=== PATIENT | female | born 1980 | race Asian ===

== ENCOUNTER 2016-10-16 15:41 | Emergency (ER) | payer MEDICAID ==
[~2016-10-16] VITALS: Ht 167.6 cm; Wt 63.5 kg
[2016-10-16] MEDS ORDERED: LORazepam Inj 2mg/ml 1ml IM ONE (16:00)
[2016-10-16] MEDS ORDERED: ATIVAN0.5 MG ORAL (17:55)
[2016-10-16 18:03] VITALS: BP 112/75
--- NOTE | 2016-10-16 18:55 | Emergency Room Report ---
History of Present Illness General Chief Complaint: General Complaint Source: Patient, EMS Present Illness HPI 36-year-old female presents to ED for evaluation. Per EMS patient is having a panic attack. Started today. Patient arrives crying, tremulous. Patient states she's having family problems. Has history of anxiety. Takes trazodone. Patient denies hitting depressed. Denies any suicidal or homicidal ideation. Denies hearing voices. Denies alcohol or drug use. No other aggravating or relieving factors. Denies any other associated symptoms Allergies: Coded Allergies: No Known Allergies (Unverified , 10/16/16) Patient History Past Medical History: psych hx Past Surgical History: none Pertinent Family History: none Social History: Denies: alcohol use, drug use, smoking Now: No Reviewed Nursing Documentation: PMH: Agreed, PSxH: Agreed Nursing Documentation-PMH Past Medical History: No History, Except For History Of Psychiatric Problem: Yes - ANXIETY Review of Systems All Other Systems: negative except mentioned in HPI Physical Exam Vital Signs Date Time Temp Pulse Resp B/P Pulse Ox O2 Delivery O2 Flow Rate FiO2 10/16/16 15:36 118 36 134/84 100 Room Air 10/16/16 18:03 97.7 Sp02 EP Interpretation: reviewed, normal General Appearance: alert, GCS 15, non-toxic, mild distress Head: normocephalic Eyes: bilateral eye PERRL, bilateral eye normal inspection ENT: normal ENT inspection Neck: normal inspection Respiratory: normal inspection Cardiovascular #1: normal inspection Gastrointestinal: normal inspection Rectal: deferred Genitourinary: no CVA tenderness Musculoskeletal: normal inspection Neurologic: alert, oriented x3, responsive, motor strength/tone normal, sensory intact, speech normal Psychiatric: judgement/insight normal, memory normal, no suicidal/homicidal ideation, no delusions, anxious Skin: normal inspection Lymphatic: normal inspection Medical Decision Making Diagnostic Impression: Primary Impression: Anxiety ER Course Hospital Course 36-year-old female presents ED crying, tremulous. History of anxiety. States she is having a panic attack Differential diagnoses include: anxiety, psychosis, ETOH Clinical course Patient placed on stretcher. on lunchroom monitor. After initial history and physical I ordered ativan IM Upon reassessment patient is observed feeling better. Interacting appropriately. Patient states she feels better wishes to go home. Clinical findings consistent with anxiety reaction. I. I feel this is a highly complex case requiring extensive working including EKG/Rhythm strip, Xray/CT/US, Blood/urine lab work, repeat exams while in ED, and administration of strong opiates/narcotics for pain control, admission to hospital or close patient follow up. Diagnosis - anxiety Stable and discharged to home with prescription for Ativan. Followup with PMD. Return to ED if symptoms recur or worse Last Vital Signs Date Time Temp Pulse Resp B/P Pulse Ox O2 Delivery O2 Flow Rate FiO2 10/16/16 18:03 88 16 112/75 100 Room Air 10/16/16 18:03 97.7 Status: improved Disposition: HOME, SELF-CARE Condition: Stable Scripts Lorazepam* (ATIVAN*) 0.5 Mg Tablet 0.5 MG ORAL THREE TIMES A DAY, #20 TAB Prov: ELIZABETH MENDOZA M.D. 10/16/16 Patient Instructions: Panic Attacks, [id number] ELIZABETH MENDOZA M.D. Oct 16, 2016 18:55
== END 2016-10-16 18:03 | disposition home or self-care (01) ==
LOC: EDBD 15:41 → EMR 17:41
DX: F41.9 Anxiety disorder, unspecified (principal)
CPT/HCPCS: 96372; 99283